=== PATIENT | male | born 1990 | race Caucasian/White ===

== ENCOUNTER 2018-11-11 16:25 | Emergency (ER) | payer SELFPAY ==
[~2018-11-11] VITALS: Ht 188 cm; Wt 83.9 kg
--- NOTE | 2018-11-11 17:34 | NUR ---
PT WAS EVALUATED BY DR GARAY. PT WAS D/C'D TO HOME. D/C INSTRUCTIONS GIVEN TO THE PT.
[2018-11-11 17:37] VITALS: BP 131/77
== END 2018-11-11 17:38 | disposition home or self-care (01) ==
LOC: ER 16:29
DX: M79.632 Pain in left forearm (principal); M54.2 Cervicalgia
CPT/HCPCS: A4663